=== PATIENT | female | born 1980 | race African-American/Black ===

== ENCOUNTER 2017-05-08 08:52 | Emergency (ER) | payer SELFPAY ==
[~2017-05-08] VITALS: Ht 170.2 cm; Wt 109.0 kg
[2017-05-08] MEDS ORDERED: SODIUM CHLORIDE 0.9% 1,000 ML IV ONE (09:25)
[2017-05-08] MEDS ORDERED: ONDANSETRON HCL 4MG/2ML VIAL IV STA (09:25)
[2017-05-08] MEDS ORDERED: MORPHINE SULFATE 4 MG/ML CPJ (NOT FOR IM USE) IV STA (09:25)
[2017-05-08 10:26] LABS: BASOPHILS % 0.5 % (0.0-2.0); EOSINOPHILS % 1.1 % (0.0-5.0); HEMATOCRIT. 47.3 % (36.0-48.0); HEMOGLOBIN. 15.6 g/dL (12.0-16.0); LYMPHOCYTES % 19.7 % (20.0-50.0); MEAN CORPUSCULAR HEMOGLOBIN 32.8 pg (28.0-32.0); MEAN PLATELET VOLUME 8.1 fl (7.4-10.4); MONOCYTES % 6.6 % (2.0-8.0); NEUTROPHILS % 72.1 % (40.0-76.0); PLATELET 283 x1000/uL (130-400); RED BLOOD CELL COUNT 4.77 mill/uL (4.2-5.4); RED CELL DISTRIBUTION WIDTH 14.8 % (11.6-14.6)
[2017-05-08 10:27] LABS: PROTHROMBIN TIME 10.8 sec (9.4-11.6)
[2017-05-08 10:37] LABS: CHLORIDE 112 mEq/L (98-107)
[2017-05-08] MEDS ORDERED: KETOROLAC 30MG/ML VIAL IV ONE (15:45)
[2017-05-08] MEDS ORDERED: IOHEXOL-300 100 ML BOTTLE ONE (16:52)
[2017-05-08 18:35] VITALS: BP 141/89
== END 2017-05-08 18:32 | disposition home or self-care (01) ==
LOC: ER 09:06
DX: M25.512 Pain in left shoulder (principal); M25.511 Pain in right shoulder; R07.9 Chest pain, unspecified; I10 Essential (primary) hypertension; V49.49XA Driver injured in collision with other motor vehicles in traffic accident, initial encounter; Y93.89 Activity, other specified; Y92.89 Other specified places as the place of occurrence of the external cause; Y99.8 Other external cause status; Z88.0 Allergy status to penicillin
CPT/HCPCS: 36415; 70450; 71045; 71260; 72125; 72170; 73030; 73610; 74177; 80053; 84484; 85025; 85610; 93005; 96361; 96374; 96375; 99285; J1885; J2270; J2405; J7030; Q9967